=== PATIENT | male | born 1945 | race Caucasian/White ===

== ENCOUNTER 2016-11-13 11:00 | Inpatient (IN) | payer MEDICARE, OTHER ==
[~2016-11-13] VITALS: Ht 172.7 cm; Wt 121.3 kg
--- NOTE | ~2016-11-13 | OR ---
PATIENT'S NAME: ALEXIS GUADALUPE [facility] AGE: 71 Y [address] ROOM: [place] [id number] LOCATION: [facility] ADMIT DATE: 11/19/2016 OR/Procedure Report DISCHARGE DATE: FAMILY PHYSICIAN: Allison Collins MD ATTENDING PHYSICIAN: ANDREINA TALBOT SURGEON: Andreina Talbot MD STEAM TRAP WORKER: Naga Gray PA-C and Ryne Crow CST/COLOR SPECIALIST. DATE OF PROCEDURE: 11/19/2016 PRE-OP DIAGNOSIS: Primary osteoarthritis, right hip. POST-OP DIAGNOSIS: Primary osteoarthritis, right hip. OPERATION: Right total hip arthroplasty. ANESTHESIA: Spinal anesthesia plus subcutaneous and periarticular local anesthesia (ropivacaine with epinephrine). ESTIMATED BLOOD LOSS: Approximately 250 mL. DRAIN: None. SPECIMEN: None. COMPLICATIONS: None. IMPLANTS: 1. Carol Trident Tritanium, size 56 mm, hemispherical, uncemented acetabular shell with 1 dome hole cover and no screws. 2. [place] X3 neutral acetabular polyethylene liner with 36 mm inner diameter. 3. DePuy [place], size 7, high offset, uncemented femoral component. 4. 36 mm Biolox femoral head with +1.5 mm neck length. INDICATION FOR SURGERY: Alexis Guadalupe is a 71-year old male who presents with advanced right hip primary osteoarthritis and associated severely compromised activities of daily living. The patient has decided to proceed with hip replacement after having been thoroughly counseled regarding the associated risks, benefits, and limitations. We have specifically reviewed the risks and implications of infection, deep venous thrombosis, pulmonary embolism, mortality, neurovascular complications, blood transfusion (and associated potential for disease transmission or transfusion reaction), stiffness, instability, leg length discrepancy, mechanical deterioration of the components (due to wear and to loosening), and the potential need for PATIENT'S NAME: ALEXIS GUADALUPE [facility] AGE: 71 Y [address] ROOM: [address] [address] LOCATION: [facility] ADMIT DATE: 11/19/2016 OR/Procedure Report DISCHARGE DATE: FAMILY PHYSICIAN: Allison Collins MD ATTENDING PHYSICIAN: ANDREINA TALBOT revision. DESCRIPTION OF PROCEDURE: The patient was positioned in a lateral decubitus position with the right side up after administration of anesthesia and prophylactic antibiotics. An axillary roll was placed and the non-operative leg was well padded. The pelvis was locked perpendicularly to the floor on a pegboard. The right hip and entire operative extremity were prepped and draped with vigilant sterile technique. The patient's name as well as the intended operative side and procedure were confirmed with a verbal time-out involving myself, the circulating nurse, the scrub nurse, and the anesthesiologist. The right hip was approached through a standard posterolateral incision. The fascia krystal and the gluteus jasmyn fascia were sharply divided in line with the overlying skin incision. The sciatic nerve was identified and was vigilantly protected throughout the entire case. The short external rotators and posterior capsule were divided from their respective femoral insertions and tagged with four #1 Ethibond sutures for later repair. The hip was posteriorly dislocated with combined flexion, adduction, and internal rotation. The femoral neck osteotomy was performed with an oscillating saw. Inspection of the femoral head demonstrated full-thickness loss of articular cartilage throughout its cephalad surface. There was a moderate-sized osteophyte around the periphery of the femoral head. Photographic documentation of the appearance of the femoral head was obtained. Circumferential acetabular exposure was obtained. Inspection of the acetabulum demonstrated a large amount of benign-appearing translucent synovial fluid. There were no loose bodies. There was a moderate-sized medial acetabular osteophyte. There was a large anterior acetabular osteophyte. There was no dysplasia. There was full-thickness loss of articular cartilage throughout the anterosuperior aspect of the acetabulum. Remnants of the acetabular labrum were sharply thoroughly excised. The acetabulum was sequentially progressively reamed up to 55 mm with hemispherical power reamers. The final acetabular shell was impacted into position in 20 degrees of anteversion and 45 degrees of inclination. An excellent press-fit was obtained. No supplemental dome screw fixation was necessary. A neutral trial liner was inserted. Attention was next focused upon femoral preparation. The femoral canal initiator was utilized. The femoral canal was reamed by hand to a size 5 and subsequently on power to a size 7 with tapered conical reamers. The size 7 reamer engaged the endosteal cortex of the proximal femur. The femoral canal was subsequently sequentially progressively broached up to a size 7. The size PATIENT'S NAME: KERRI GUADALUPEVIOLET Gomes [facility] AGE: 71 Y [address] ROOM: [id number] [place], [place] [address] LOCATION: [facility] ADMIT DATE: 11/19/2016 OR/Procedure Report DISCHARGE DATE: FAMILY PHYSICIAN: Allison Collins MD ATTENDING PHYSICIAN: ANDREINA TALBOT ana maria obtained excellent axial and rotational stability. Trial reductions with the above specified construct yielded acceptable stability and acceptable reproduction of leg length and offset. All trial components were removed. The final acetabular liner was inserted with excellent circumferential visualization of its locking mechanism to assure adequate deployment. The final femoral component was impacted into position. The femoral component achieved excellent axial and rotational stability. The trunnion of the femoral component was vigilantly protected prior to placement of the femoral head. The trunnion of the femoral component was thoroughly cleaned and dried prior to placement of the femoral head. The incision was thoroughly irrigated with bacteriostatic pulsatile saline lavage multiple times throughout the case. The entire joint space was thoroughly inspected and thoroughly irrigated to assure that there was no residual debris of any sort. A final reduction was then performed. After final reduction, the hip could be firmly externally rotated in full extension and zero degrees of abduction without anterior subluxation. In neutral rotation and zero degrees of abduction, the hip could be firmly flexed to 120 degrees without instability. At 90 degrees of flexion and zero degrees abduction, the hip could be internally rotated to 70 degrees before there was any hint of posterior subluxation. The posterior capsule and short external rotators were repaired through two drill holes in the posterior aspect of the greater trochanter. The fascia krystal and gluteus jasmyn fascia were closed with multiple simple and [id number] interrupted # 1 Ethibond and #1 Vicryl sutures. Subcutaneous tissues were thoroughly re-irrigated with bacteriostatic pulsatile saline lavage. Subcutaneous tissues were re-approximated with simple buried interrupted #0 Vicryl sutures. The skin was closed with superficial buried interrupted 2-0 Vicryl sutures followed by a running subcuticular 3-0 Monocryl suture, followed by Octylseal, followed by Steri- Strips with benzoin, followed by an occlusive Mepilex dressing. There were no intra-operative complications. It should be noted that the physician's drafter assistant played an active, integral role throughout this entire operation. By providing expert retraction, they greatly facilitated and expedited safe and effective exposure of the proximal femur and acetabulum for preparation and implantation of the components. They were also actively involved in the patient's positioning, prepping and draping, as well as wound closure. PATIENT'S NAME: ALEXIS GUADALUPE [facility] AGE: 71 Y [address] ROOM: [place] [address] LOCATION: [facility] ADMIT DATE: 11/19/2016 OR/Procedure Report DISCHARGE DATE: FAMILY PHYSICIAN: Allison Collins MD ATTENDING PHYSICIAN: ANDREINA TALBOT ANDREINA TALBOT MD JMW/modl /[id number] d: 11/20/16 0755 t: 11/27/16 0716, OPERATIVE SUMMARY
[~2016-11-13 11:00] MED LIST: DIOVAN320 MG PO; DIPROSONE CREAM15 GM TOP; GLUCOPHAGE XR500 M1 PO; HYDRODIURIL25 MG PO; LIPITOR10 MG PO; MOBIC15 MG PO
[2016-11-20] MEDS ORDERED: TYLENOL EXTRA500 MG PO (14:47)
[2016-11-20] MEDS ORDERED: COLACE100 MG PO (14:48)
[2016-11-20] MEDS ORDERED: MIRALAX17 GM PO (14:52)
[2016-11-20] MEDS ORDERED: XARELTO10 MG PO (14:53)
[2016-11-20] MEDS ORDERED: DILAUDID 2MG(HYD2 MG PO (14:54)
[2016-11-20] MEDS ORDERED: VALIUM5 MG PO (14:56)
== END 2016-11-20 16:33 | disposition disaster alternative care site (69) | DRG 470 ==
LOC: G3N 11-19 09:10
PROVIDERS: ADMIT Orthopaedic Surgery
PROC: 0SR902A Replacement of Right Hip Joint with Metal on Polyethylene Synthetic Substitute, Uncemented, Open Approach (ICD-10-PCS; principal; 2016-11-19)
DX: M16.11 Unilateral primary osteoarthritis, right hip (principal); Z68.41 Body mass index [BMI] 40.0-44.9, adult; I10 Essential (primary) hypertension; E11.9 Type 2 diabetes mellitus without complications; E78.5 Hyperlipidemia, unspecified; E66.9 Obesity, unspecified; Z79.84 Long term (current) use of oral hypoglycemic drugs
CPT/HCPCS: C1776; J0690; J1885; J2001; J2795; J7030

== ENCOUNTER → 2016-11-15 | Outpatient (CLI) | payer MEDICARE, OTHER ==
[~2016-11-15] MED LIST changes: +COLACE100 MG PO; +DILAUDID 2MG(HYD2 MG PO; +MIRALAX17 GM PO; +TYLENOL EXTRA500 MG PO; +VALIUM5 MG PO; +XARELTO10 MG PO
== END | disposition disaster alternative care site (69) ==
LOC: GNJRC 10:30
DX: Z01.812 Encounter for preprocedural laboratory examination (principal); M16.11 Unilateral primary osteoarthritis, right hip

== ENCOUNTER → 2016-11-16 | Outpatient (CLI) | payer MEDICARE, OTHER ==
--- NOTE | ~2016-11-16 | ECHO ---
Transthoracic Echocardiography Report (TTE) Demographics Patient Name MIKE BOYKIN Date of Study 11/16/2016 Patient Number [id number] Visit Number [id number] Date of 1945 Room Number Accession Number [id number] Gender Male Age 71 year(s) Referring Dennis Bishop MD Cloth Presser Loki Osborn RVT, Physician RDCS Physician Interpreting Geovanni Quick MD Facility Maintenance Technician Physician Supervising Ordering Physician Geovanni Quick MD, MD/P Nurse Stress Mold Worker Conclusions Contractility Score Summary Normal Left Ventricular contractility was noted. Summary Technically difficult exam. The estimated left ventricular ejection fraction is 60%. Moderate septal left ventricular hypertrophy. Diastolic assessment reveals Grade I diastolic dysfunction. The left atrium is mildly dilated. Procedure Type of Study TTE procedure:2D Echocardiogram. Procedure Date Date: 11/16/2016 Start: 02:49 PM Study Location: Echo Lab Technical Quality: Fair due to body habitus. Indications:Hypertension and pre surgical clearance. Appropriate Use Criteria: 8 Patient Status: Routine Rhythm: NSR HR: 83 bpm BP: 130/81 mmHg M-Mode/2D Measurements LV Diastolic Dimension: 4.78 cm LV Systolic Dimension: 3.13 cm LV Septum Diastolic: 1.63 cm LV PW Diastolic: 0.95 cm AO Root Dimension: 3.2 cm Cardiac Output: 6.62 l/min AV Cusp Separation: 2.4 cm RV Diastolic Dimension: 3.54 cm LA volume: 69 ml LVOT: 2.3 cm RV Base: 3.88 cm LVOT VTI: 19.2 cm RV Mid: 4.49 cm LV Stroke volume: 79.73 ml TAPSE: 2.08 cm TDI-S': 17.3 cm/s Doppler Measurements AV Peak Velocity: 1.12 m/s MV Peak E-Wave: 0.66 m/s AV Peak Gradient: 5.02 mmHg MV Peak A-Wave: 0.81 m/s AV Mean Gradient: 3 mmHg MV E/A Ratio: 0.81 LVOT Peak Velocity: 0.99 m/s MV P1/2t: 64 msec TR Gradient:5.86 mmHg PV Peak Velocity: 0.66 m/s PV Peak Gradient: 1.75 mmHg E' Septal Velocity: 0.05 m/s A' Septal Velocity: 0.09 m/s E' Lateral Velocity: 0.07 m/s A' Lateral Velocity: 0.13 m/s Findings Left Ventricle Mild to moderate concentric left ventricular hypertrophy. Diastolic assessment reveals Grade I diastolic dysfunction. Right Ventricle Normal right ventricle structure and function. Mildly dilated right ventricle. Left Atrium Normal left atrial size. Right Atrium The right atrium is mildly dilated. Mitral Valve Normal mitral valve structure and function. Aortic Valve Normal aortic valve structure and function. Tricuspid Valve Normal tricuspid valve structure and function. Pulmonic Valve Normal pulmonic valve structure and function. Pericardial Effusion No evidence of pericardial effusion. Miscellaneous Visualized portions of the aortic root and ascending aorta appear normal in size. Pleural Effusion No evidence of pleural effusion. Contractility Score LV regional wall motion:(0-Non visualized 1-Normal 2-Hypokinesis 3-Akinesis 4-Dyskinesis 5-Aneurysm) Signature dtt: Abdelrahman Galarza (cardio) dtd: 11/16/16 1449 Physician Self Edit
== END | disposition disaster alternative care site (69) ==
LOC: GCAR 14:14
DX: Z01.810 Encounter for preprocedural cardiovascular examination (principal); I51.7 Cardiomegaly